=== PATIENT | male | born 1995 | race Caucasian/White ===

== ENCOUNTER 2023-07-10 19:53 | Inpatient (IN) | payer SELFPAY, MEDICAID ==
[~2023-07-10] VITALS: Ht 182.9 cm; Wt 70.8 kg
[2023-07-10 20:06] VITALS: BP 119/61; PULSE 96; RESP 18; TEMP 98.5; O2SAT 98
[2023-07-10 20:16] VITALS: BP 119/61; PULSE 96; RESP 18; TEMP 98.5; O2SAT 98
[2023-07-10 20:51] LABS: HEMATOCRIT(ML) 34.9 % (37.0-53.0); HEMOGLOBIN 11.8 g/dL (13.9-16.3); MEAN CORP HGB 34.1 pg (26-34); MEAN CORP HGB CONCENTRATION 33.8 g/dL (33-36.5); MEAN CORP VOLUME 100.9 fL (78-100); RED BLOOD CELL 3.46 10^6/uL (4.50-5.90); RED CELL DISTRIBUTION WIDTH 12.6 % (11.5-14.5); WHITE BLOOD CELL 10.1 10^3/uL (4.5-11.0)
[2023-07-10] MEDS ORDERED: NS 250ML 250 ML ONE (20:54)
[2023-07-10] MEDS ORDERED: VANCOMYCIN HCL 1 GM ONE (20:55)
[2023-07-10 21:00] VITALS: BP 128/67; PULSE 80; RESP 18; TEMP 98.5; O2SAT 96
[2023-07-10] MEDS ORDERED: VANCOMYCIN 1 GRAM/200 ML BAG 200 ML IV ONE (21:00)
[2023-07-10 21:30] LABS: ALBUMIN(ML) 3.8 g/dL (3.4-5.0); ALBUMIN/GLOBULIN RATIO 1.31; ANION GAP 13.6; CALCIUM 9.4 mg/dL (8.4-10.5); CARBON DIOXIDE 26.2 mmol/L (20.0-32); CREATININE SERUM 0.96 mg/dL (0.59-1.40); EST GFR, NON-AA 93.3 (>/=60); POTASSIUM 3.8 mmol/L (3.6-5.2)
[2023-07-10 22:07] VITALS: BP 120/65; PULSE 86; RESP 18; TEMP 98.1; O2SAT 98
[2023-07-10] MEDS ORDERED: VANCOMYCIN 1.25 GM/250 ML BAG 250 ML IV ONE (22:30)
[2023-07-10] MEDS ORDERED: NS 100ML 100 ML IV ONE (22:34)
[2023-07-10] MEDS ORDERED: NS 500ML 500 ML IV ONE (22:34)
[2023-07-10] MEDS: ZOSYN 3.375 GM 3.375 GM in NS 100ML 100 ML IV SCH (23:00)
[2023-07-10 23:15] VITALS: BP 125/76; PULSE 80; RESP 22; TEMP 98.9; O2SAT 100
[2023-07-11] MEDS ORDERED: LAMO150T4 PO (02:07)
[2023-07-11] MEDS ORDERED: TOPI100T8 PO (02:07)
[2023-07-11] MEDS ORDERED: NS 100ML 100 ML IV ONE (03:30)
[2023-07-11] MEDS: ZOSYN 3.375 GM 3.375 GM in NS 100ML 100 ML IV SCH ×4 (04:15→23:28)
[2023-07-11 05:06] VITALS: BP 90/52; PULSE 54; RESP 22; TEMP 98.6; O2SAT 97
[2023-07-11 08:00] VITALS: BP 99/54; PULSE 80; RESP 16; TEMP 98.3; O2SAT 96
[2023-07-11] MEDS ORDERED: VANCOMYCIN 1 GRAM/200 ML BAG 200 ML IV ONE (10:09)
[2023-07-11] MEDS: VANCOMYCIN 1 GRAM/200 ML BAG 200 ML IV SCH ×2 (10:10→20:50)
[2023-07-11 12:00] VITALS: BP 92/55; PULSE 72; RESP 16; TEMP 97.4; O2SAT 99
[2023-07-11] MEDS ORDERED: TORADOL IV ONE (15:30)
[2023-07-11 16:44] VITALS: BP 93/55; PULSE 73; RESP 12; TEMP 98.3; O2SAT 98
[2023-07-11 19:18] VITALS: BP 103/71; PULSE 64; RESP 18; TEMP 98.8; O2SAT 100
[2023-07-11 23:36] VITALS: BP 117/80; PULSE 78; RESP 18; TEMP 98.8; O2SAT 100
[2023-07-12] MEDS: MOTRIN PO PRN ×2 (00:20→12:20)
[2023-07-12 04:38] VITALS: BP 97/57; PULSE 62; RESP 18; TEMP 98.7; O2SAT 99
[2023-07-12] MEDS: ZOSYN 3.375 GM 3.375 GM in NS 100ML 100 ML IV SCH ×3 (05:19→18:08)
[2023-07-12 07:28] VITALS: BP 89/55; PULSE 58; RESP 16; TEMP 97.7; O2SAT 98
[2023-07-12] MEDS: VANCOMYCIN 1 GRAM/200 ML BAG 200 ML IV SCH ×2 (09:07→22:03)
[2023-07-12 10:53] VITALS: BP 103/68; PULSE 62; RESP 17; TEMP 97.9; O2SAT 99
[2023-07-12 15:45] VITALS: BP 125/81; PULSE 57; RESP 19; TEMP 98.1; O2SAT 99
[2023-07-12 19:31] VITALS: BP 110/72; PULSE 52; RESP 19; TEMP 98.8; O2SAT 97
[2023-07-12 23:38] VITALS: BP 98/56; PULSE 42; RESP 19; TEMP 98.1; O2SAT 97
[2023-07-13] MEDS: ZOSYN 3.375 GM 3.375 GM in NS 100ML 100 ML IV SCH ×5 (00:28→23:56)
[2023-07-13] MEDS: MOTRIN PO PRN (03:09)
[2023-07-13 04:02] VITALS: BP 85/51; PULSE 43; RESP 19; TEMP 98.2; O2SAT 96
[2023-07-13 06:12] LABS: BASOPHIL % 0.4 % (0.0-0.2); EOSINOPHIL # 0.3 10^3/uL (0.0-0.2); EOSINOPHIL % 6.7 % (0.0-5.0); HEMATOCRIT(ML) 35.6 % (37.0-53.0); HEMOGLOBIN 11.5 g/dL (13.9-16.3); LYMPHOCYTES # 1.19 10^3/uL1 (1.0-4.8); LYMPHOCYTES % 25.6 % (24.0-44.0); MEAN CORP HGB 33.1 pg (26-34); MEAN CORP HGB CONCENTRATION 32.3 g/dL (33-36.5); MEAN CORP VOLUME 102.6 fL (78-100); MONOCYTES # 0.4 10^3/uL (0.3-0.8); MONOCYTES % 8.2 % (5.0-12.0); NEUTROPHIL # 2.7 10^3/uL (1.8-7.7); NEUTROPHILS % 58.9 % (41.0-85.0); PLATELET COUNT 221 10^3/uL (150-400); RED BLOOD CELL 3.47 10^6/uL (4.50-5.90); RED CELL DISTRIBUTION WIDTH 12.4 % (11.5-14.5); WHITE BLOOD CELL 4.7 10^3/uL (4.5-11.0)
[2023-07-13 06:14] LABS: +ADD MANUAL DIFF(NO CHRG) NO
[2023-07-13 06:22] LABS: ANION GAP 11.8; C-REACTIVE PROTEIN 2.6 mg/dL (0.00-5.00); CALCIUM 8.1 mg/dL (8.4-10.5); CARBON DIOXIDE 23.5 mmol/L (20.0-32); CREATININE SERUM 0.81 mg/dL (0.59-1.40); EST GFR, NON-AA 113.5 (>/=60); POTASSIUM 4.3 mmol/L (3.6-5.2)
[2023-07-13 07:00] VITALS: BP 98/43; PULSE 53; RESP 16; TEMP 97.7; O2SAT 98
[2023-07-13] MEDS: VANCOMYCIN 1 GRAM/200 ML BAG 200 ML IV SCH ×2 (09:46→20:20)
[2023-07-13] MEDS ORDERED: NS 500ML 500 ML IV ONE (09:47)
[2023-07-13] MEDS ORDERED: MOTRIN PO PRN (10:30)
[2023-07-13 11:00] VITALS: BP 127/76; PULSE 58; RESP 16; TEMP 97.4; O2SAT 99
[2023-07-13] MEDS ORDERED: TRIPLE ANTIBIOTIC OINTMENT PKT TP ONE (11:11)
[2023-07-13 16:05] VITALS: BP 116/78; PULSE 59; RESP 18; TEMP 97.9; O2SAT 99
[2023-07-13 20:50] VITALS: BP 166/77; PULSE 72; RESP 18; TEMP 97.6; O2SAT 99
[2023-07-14 00:31] VITALS: BP 98/58; PULSE 66; RESP 18; TEMP 97.7; O2SAT 97
[2023-07-14 04:27] VITALS: BP 94/52; PULSE 51; RESP 18; TEMP 97.6; O2SAT 98
[2023-07-14] MEDS: ZOSYN 3.375 GM 3.375 GM in NS 100ML 100 ML IV SCH ×2 (05:17→11:48)
[2023-07-14 07:00] VITALS: BP 94/62; PULSE 60; RESP 21; TEMP 98.4; O2SAT 97
[2023-07-14] MEDS: VANCOMYCIN 1 GRAM/200 ML BAG 200 ML IV SCH (09:31)
[2023-07-14 11:00] VITALS: BP 123/74; PULSE 76; RESP 21; TEMP 98; O2SAT 99
[2023-07-14] MEDS ORDERED: ANCEF 2 GM/D5W 50ML IV SCH (14:00)
[2023-07-14 16:00] VITALS: BP 123/80; PULSE 65; RESP 20; TEMP 98; O2SAT 100
[2023-07-14] MEDS ORDERED: CIPR500T86 PO (17:58)
[2023-07-14 18:30] VITALS: BP 123/80; PULSE 65; RESP 20; TEMP 98; O2SAT 100
== END 2023-07-14 18:00 | disposition home or self-care (01) | DRG 603 ==
LOC: ER 19:53 → MS 21:56 → OBSVTOIN 22:02
PROVIDERS: ADMIT Pediatrics; ATTEND Pediatrics
DX: L03.115 Cellulitis of right lower limb (principal); L03.116 Cellulitis of left lower limb; L02.415 Cutaneous abscess of right lower limb; G40.909 Epilepsy, unspecified, not intractable, without status epilepticus; M76.891 Other specified enthesopathies of right lower limb, excluding foot; S81.002A Unspecified open wound, left knee, initial encounter; X58.XXXA Exposure to other specified factors, initial encounter; Y93.89 Activity, other specified; Y92.89 Other specified places as the place of occurrence of the external cause; Y99.8 Other external cause status; Z82.0 Family history of epilepsy and other diseases of the nervous system; L02.416 Cutaneous abscess of left lower limb
CPT/HCPCS: 36415; 73701; 80048; 80053; 80202; 85025; 85027; 85651; 86140; 87040; 87070; 87077; 87186; 99285; A9270; G0378; J0690; J1885; J2543; J3370; J7040; J7050; Q9965